=== PATIENT | male | born 1955 | race Caucasian/White ===

== ENCOUNTER 2021-09-09 10:52 | Emergency (ER) | payer BC, OTHER ==
[~2021-09-09] VITALS: Ht 188 cm; Wt 77.1 kg
[2021-09-09] MEDS ORDERED: CHLO25CA22 PO (12:40)
--- NOTE | 2021-09-09 12:44 | NUR ---
Patient discharged to home in stable condition. Written and verbal after care instructions given. Patient verbalizes understanding of instructions. Stressed follow up or return to ER for worsening s/s.PT WALKS IN STEADY GAIT. PT [place], WILL WALK HOME.
== END 2021-09-09 12:46 | disposition home or self-care (01) ==
LOC: ER 10:52
DX: F10.229 Alcohol dependence with intoxication, unspecified (principal); Y90.8 Blood alcohol level of 240 mg/100 ml or more; I10 Essential (primary) hypertension; F13.20 Sedative, hypnotic or anxiolytic dependence, uncomplicated
CPT/HCPCS: 36415; A4663; G0480

== ENCOUNTER 2022-06-07 19:26 | Emergency (ER) | payer BC ==
[~2022-06-07] VITALS: Ht 188 cm; Wt 78.5 kg
[~2022-06-07 19:26] MED LIST: CHLO25CA22 PO
--- NOTE | 2022-06-07 19:45 | NUR ---
Dr. Thornton at bedside for MSE.
[2022-06-07] MEDS ORDERED: IV NORMAL SALINE 1000 ML BAG IV ONE (20:00)
--- NOTE | 2022-06-07 20:05 | NUR ---
Xray at bedside.
[2022-06-07 20:11] LABS: MEAN CORPUSCULAR HEMOGLOBIN 30.5 uug (23.8-33.4); MEAN CORPUSCULAR VOLUME 91.3 fL (73.0-96.2); PLATELET COUNT (AUTO) 198 K/uL (152-348)
[2022-06-07 20:26] LABS: ALANINE AMINOTRANSFERASE 28 U/L (16-63); ALKALINE PHOSPHATASE 76 U/L (50-136); ASPARTATE AMINOTRANSFERASE 10 U/L (15-37); BILIRUBIN,DIRECT 0.1 mg/dL (0.0-0.2); BILIRUBIN,TOTAL 0.4 mg/dL (0.2-1.0); CARBON DIOXIDE 26 mmol/L (21-32); CHLORIDE 106 mmol/L (98-107); CREATININE 0.9 mg/dL (0.6-1.3); GLUCOSE 140 mg/dL (74-106); POTASSIUM 3.1 mmol/L (3.5-5.1); TOTAL PROTEIN, SERUM 6.5 g/dL (6.4-8.2); UREA NITROGEN, BLOOD 17 mg/dL (7-18)
[2022-06-07] MEDS ORDERED: POTASSIUM BICARBONATE/CIT AC 25 MEQ TABLET.EFF PO ONE (20:45)
[2022-06-07 20:47] LABS: MAGNESIUM 1.8 mg/dL (1.8-2.4)
[2022-06-07] MEDS ORDERED: POTASSIUM BICARBONATE/CIT AC 25 MEQ TABLET.EFF ONE (20:59)
[2022-06-07] MEDS ORDERED: CYANOCOBALAMIN 1000 MCG/ML VIAL IM ONE (21:00)
[2022-06-07] MEDS ORDERED: CYANOCOBALAMIN 1000 MCG/ML VIAL ONE (21:00)
[2022-06-07] MEDS ORDERED: MAGNESIUM SULFATE/D5W 200 ML ONE (21:05)
[2022-06-07 21:11] LABS: THYROID STIMULATING HORMONE 1.297 mIU/mL (0.358-3.740)
[2022-06-07] MEDS: MAGNESIUM SULFATE/D5W 100 ML IV SCH ×2 (21:12→21:13)
[2022-06-07] MEDS ORDERED: PROC10TA29 PO ×2 (21:41→21:58)
[2022-06-07] MEDS ORDERED: MECL-159 PO (21:57)
[2022-06-07] MEDS ORDERED: MECLIZINE HCL 25 MG TABLET PO ONE ×2 (22:00→23:15)
[2022-06-07] MEDS ORDERED: MECLIZINE HCL 25 MG TABLET ONE ×2 (22:06→23:12)
--- NOTE | 2022-06-07 22:15 | NUR ---
Patient discharged to home in stable condition. Written and verbal after care instructions given. Patient verbalizes understanding of instructions. Stressed follow up or return to ER for worsening s/s. Patient out of ER with steady gait, no acute signs of distress, VSS, all belongings taken, IV site discontinued.
[2022-06-07 22:16] VITALS: BP 123/72
[2022-06-08] MEDS ORDERED: MECLIZINE HCL 25 MG TABLET ONE (00:08)
[2022-06-08] MEDS ORDERED: CHOLECALCIFEROL 1,000 UNIT TABLET ONE (00:09)
[2022-06-08] MEDS ORDERED: ONDANSETRON 4 MG/2 ML VIAL ONE (00:12)
[2022-06-08] MEDS ORDERED: IV NS 1000 ML 1,000 ML IV ONE (00:15)
[2022-06-08] MEDS ORDERED: CHOLECALCIFEROL 1,000 UNIT TABLET PO SCH (00:15)
[2022-06-08] MEDS ORDERED: MECLIZINE HCL 25 MG TABLET PO ONE (00:15)
[2022-06-08] MEDS ORDERED: ONDANSETRON 4 MG/2 ML VIAL IV ONE (00:30)
[2022-06-08] MEDS ORDERED: POTASSIUM BICARBONATE/CIT AC 25 MEQ TABLET.EFF PO ONE (01:15)
[2022-06-08] MEDS ORDERED: POTASSIUM BICARBONATE/CIT AC 25 MEQ TABLET.EFF ONE (01:20)
== END 2022-06-08 05:00 | disposition home or self-care (01) ==
LOC: ER 19:27
DX: R42 Dizziness and giddiness (principal); E83.42 Hypomagnesemia; E87.6 Hypokalemia; I10 Essential (primary) hypertension; R11.2 Nausea with vomiting, unspecified; R94.31 Abnormal electrocardiogram [ECG] [EKG]
CPT/HCPCS: 99285; 96365; 71045; 80076; 80048; 82140; 82607; 83036; 83735; 84443; 85025; 85730; 87040; 84484; 36415; 93005; 83605; 96372; 96375; J3420; J3475; J2405; J7040; A4663; J8597